=== PATIENT | female | born 1980 ===

== ENCOUNTER 2017-10-13 14:31 | Emergency (ER) | payer BC ==
--- NOTE | 2017-10-13 18:48 | EDM.PDOC ---
Scribed by Ivanna Lagunas 10/13/17 [id number] for Ly Tucker NP ED HPI GENERAL MEDICAL PROBLEM - General Chief Complaint: Head Injury Stated Complaint: SLEDDING INJURY. NOSE INJ [phone] Time Seen by Provider: 10/13/17 16:01 Source of Information: Reports: Patient, RN, RN Notes Reviewed History Limitations: Reports: No Limitations - History of Present Illness INITIAL COMMENTS - FREE TEXT/NARRATIVE: Patient was sledding today with her daughter and at about 2:45 p.m. she was hit in the face with her daughters head. No loss of consciousness. She broke her sunglasses. Onset: Today Location: Reports: Face Quality: Reports: Ache Severity: Moderate Improves with: Reports: None Worsens with: Reports: None Associated Symptoms: Reports: No Other Symptoms Face Pain Score (Numeric/FACES): 8 - Related Data Allergies Allergy/AdvReac Type Severity Reaction Status Date / Time amoxicillin Allergy Rash Verified 10/13/17 15:56 Penicillins Allergy Rash Verified 10/13/17 15:56 Home Meds: Home Meds . [No Known Home Meds] 10/13/17 [History] Past Medical History HEENT History: Reports: None Cardiovascular History: Reports: None Respiratory History: Reports: None Gastrointestinal History: Reports: None Genitourinary History: Reports: None ARCHITECTURE INTERN History: Reports: None Musculoskeletal History: Reports: None Neurological History: Reports: None Psychiatric History: Reports: None Endocrine/Metabolic History: Reports: None Hematologic History: Reports: None Immunologic History: Reports: None Oncologic (Cancer) History: Reports: None Dermatologic History: Reports: None - Past Surgical History Female Surgical History: Reports: Section Social & Family History - Family History Family Medical History: Noncontributory - Tobacco Use Smoking Status *Q: Never Smoker - Recreational Drug Use Recreational Drug Use: No ED ROS GENERAL - Review of Systems Review Of Systems: ROS reveals no pertinent complaints other than HPI. ED EXAM, HEAD INJURY - Physical Exam Exam: See Below Exam Limited By: No Limitations General Appearance: Alert Head: Atraumatic, Normocephalic Eyes: Bilateral Eye: Normal Inspection Ears: Normal External Exam, Normal Canal, Hearing Grossly Normal, Normal TMs Nose: Other (Bridge of nose deformed to the right. Nose is swollen and errhymotic.) Throat/Mouth: Normal Inspection, Normal Lips, Normal Teeth, Normal Gums, Normal Oropharynx, Normal Voice, No Airway Compromise Neck: Non-Tender, Full Range of Motion, Normal Alignment, Normal Inspection Respiratory: No Respiratory Distress, Lungs Clear, Normal Breath Sounds, No Accessory Muscle Use, Chest Non-Tender Cardiovascular: Normal Peripheral Pulses, Regular Rate, Rhythm, No Edema, No Gallop, No JVD, No Murmur, No Rub GI/Abdominal Exam: Normal Bowel Sounds, Soft, Non-Tender, No Organomegaly, No Distention, No Abnormal Bruit, No Mass (Female) Exam: Deferred Rectal (Female) Exam: Deferred Back Exam: Full Range of Motion, Normal Inspection, NT Extremities: Normal Inspection, Normal Range of Motion, Non-Tender, No Pedal Edema, Normal Capillary Refill 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 Orbits and paranasal sinuses are normal. See Rad report. Departure - Departure Time of Disposition: 18:32 Disposition: DC/Tfer to Acute Hospital 02 Condition: Fair Clinical Impression: Nasal fracture Qualifiers: Encounter type: initial encounter Fracture type: closed Qualified Code(s): S02.2XXA - Fracture of nasal bones, initial encounter for closed fracture - Discharge Information Forms: ED Department Discharge, Interfacility Transfer EMTALA I have read and agree with the documentation that has been completed regarding this visit. By signing this record, I attest that the documentation was completed in my physical presence and is an accurate record of the encounter.
== END 2017-10-13 18:50 ==
LOC: DL.ED 14:31
DX: S02.2XXA Fracture of nasal bones, initial encounter for closed fracture (principal); Z88.0 Allergy status to penicillin; Z88.1 Allergy status to other antibiotic agents; W51.XXXA Accidental striking against or bumped into by another person, initial encounter; Y93.23 Activity, snow (alpine) (downhill) skiing, snowboarding, sledding, tobogganing and snow tubing
CPT/HCPCS: 70486; 99283